=== PATIENT | female | born 1985 | race Caucasian/White ===

== ENCOUNTER 2018-07-21 00:33 | Emergency (ER) | payer OTHER ==
[~2018-07-21] VITALS: Ht 152.4 cm; Wt 102.5 kg
[~2018-07-21 00:33] MED LIST: SULF-168 PO; VICOT PO
[2018-07-21] MEDS ORDERED: AZIT250T9 PO (00:48)
[2018-07-21] MEDS ORDERED: DIPH25 PO (00:48)
[2018-07-21] MEDS ORDERED: DiphenhydrAMINE HCL 50 MG CAPSULE PO ONE (02:15)
[2018-07-21] MEDS ORDERED: FAMOTIDINE 20 MG TABLET PO ONE (02:15)
[2018-07-21] MEDS ORDERED: PredniSONE 20 MG TABLET PO ONE (02:15)
[2018-07-21 02:27] VITALS: BP 132/88
== END 2018-07-21 02:27 | disposition home or self-care (01) ==
LOC: EMS 00:34
DX: T78.40XA Allergy, unspecified, initial encounter (principal); F41.9 Anxiety disorder, unspecified; F32.9 Major depressive disorder, single episode, unspecified; Z88.1 Allergy status to other antibiotic agents; Z79.899 Other long term (current) drug therapy
CPT/HCPCS: 99284; J7512

== ENCOUNTER 2023-10-27 14:53 | Emergency (ER) | payer OTHER ==
[~2023-10-27] VITALS: Ht 154.9 cm; Wt 90.9 kg
[~2023-10-27 14:53] MED LIST changes: -SULF-168 PO; +TRAZ-184 PO; -VICOT PO
[2023-10-27 15:06] LABS: COVID AG,FIA SOURCE NASAL SWAB
[2023-10-27 15:34] LABS: SARS-COV2 (COVID) ANTIGEN,FIA Negative (Negative)
[2023-10-27 15:35] LABS: INFLUENZA TYPE A NEGATIVE FOR TYPE A (NEGATIVE); INFLUENZA TYPE B NEGATIVE FOR TYPE B (NEGATIVE)
[2023-10-27] MEDS ORDERED: ALBUTEROL SULFATE HFA 90 MCG/PUFF 8 GM INHALER IH ONE (17:00)
[2023-10-27 17:03] VITALS: PULSE 86; RESP 16; O2SAT 98
[2023-10-27 17:05] VITALS: PULSE 88; RESP 16; O2SAT 98
[2023-10-27 18:52] VITALS: BP 128/75; PULSE 102; RESP 16; TEMP 98.2
[2023-10-27] MEDS ORDERED: AZIT250T9 PO (18:52)
== END 2023-10-27 22:12 | disposition home or self-care (01) ==
LOC: EMS 14:56
DX: J18.9 Pneumonia, unspecified organism (principal); F41.9 Anxiety disorder, unspecified; F32.A Depression, unspecified; Z88.8 Allergy status to other drugs, medicaments and biological substances; Z20.822 Contact with and (suspected) exposure to COVID-19
CPT/HCPCS: 99284; 71045; 87426; 87804; 94640; J3535

== ENCOUNTER 2024-05-26 15:39 | Emergency (ER) | payer MEDICARE, OTHER ==
[~2024-05-26] VITALS: Ht 149.9 cm; Wt 90.9 kg
[2024-05-26 15:43] VITALS: TEMP 98.2
[2024-05-26 16:17] LABS: BASOPHILS % (AUTO) 0.7 % (0.0-2.0); HEMATOCRIT 41.2 % (36-46); HEMOGLOBIN 13.6 g/dL (12.0-16.0); LYMPHOCYTES # (AUTO) 2.2 K/uL (1.0-4.8); LYMPHOCYTES % (AUTO) 37.2 % (22.0-44.0); MEAN CORPUSCULAR HEMOGLOBIN 29.8 pg (26.0-34.0); MEAN CORPUSCULAR HGB CONC 32.9 G/dL (31.0-37.0); MEAN CORPUSCULAR VOLUME 91 fL (80-100); MONOCYTES # (AUTO) 0.6 K/uL (0.1-1.0); MONOCYTES % (AUTO) 10.6 % (2.0-9.0); NEUTROPHILS # (AUTO) 2.8 K/uL (1.8-7.7); NEUTROPHILS % (AUTO) 47.5 % (40.0-70.0); PLATELET COUNT (AUTO) 206 K/uL (150-450); RED BLOOD CELL COUNT(AUTO) 4.55 MIL/uL (4.00-5.20); RED CELL DISTRIBUTION WIDTH 13.3 % (11.5-14.5); WHITE BLOOD COUNT (AUTO) 5.9 K/uL (4.5-11.0)
[2024-05-26 16:32] LABS: ANION GAP 8 mmol/L (8-16); CALCIUM, TOTAL 8.9 mg/dL (8.8-10.5); CARBON DIOXIDE 28 mmol/L (22-29); CHLORIDE 100 mmol/L (98-107); CREATININE 0.56 mg/dL (0.60-1.30); GLOMERULAR FILTR. RATE CALC > 60 mL/min (>60); GLUCOSE,RANDOM 89 mg/dL (70-110); POTASSIUM 4.2 mmol/L (3.5-5.1); SODIUM SERUM 136 mmol/L (136-145); UREA NITROGEN, BLOOD 11 mg/dL (7-18)
[2024-05-26 16:41] LABS: HCG,QUANTITATIVE 1 mIU/mL (0-6); LIPASE 35 U/L (16-77)
[2024-05-26 17:16] LABS: APPEARANCE,URINE CLEAR (CLEAR); BILIRUBIN,URINE NEGATIVE (NEGATIVE); COLOR,URINE COLORLESS (YELLOW); GLUCOSE, URINE (UA) NEGATIVE (NEGATIVE); KETONES,URINE NEGATIVE (NEGATIVE); LEUKOCYTE ESTERASE ,URINE TRACE (NEGATIVE); NITRATE,URINE NEGATIVE (NEGATIVE); OCCULT BLOOD,URINE NEGATIVE (NEGATIVE); PROTEIN,URINE NEGATIVE (NEGATIVE); SPECIFIC GRAVITIY, URINE 1.006 (1.003-1.030); UROBILINOGEN,URINE <=1.0 mg/dL (<=1.0)
[2024-05-26 17:20] LABS: ALBUMIN 3.6 g/dL (3.4-5.0); BILIRUBIN,DIRECT 0.1 mg/dL (0.00-0.20); BILIRUBIN,TOTAL 0.3 mg/dL (0.1-1.0); TOTAL PROTEIN, SERUM 7.6 g/dL (6.4-8.2)
[2024-05-26] MEDS: FAMOTIDINE 20 MG/2 ML VIAL IVP ONE (17:36)
[2024-05-26] MEDS: SODIUM CHLORIDE 0.9% 1,000 ML IV ONE (17:36)
[2024-05-26] MEDS: MORPHINE SULFATE 2 MG/ML SYRINGE IVP ONE (17:37)
[2024-05-26 17:41] LABS: BACTERIA,URINE None Seen /HPF (None Seen); RBC,URINE None Seen /HPF (0-2); WBC,URINE 0-2 /HPF (0-5)
[2024-05-26 18:02] VITALS: BP 120/66; PULSE 78; RESP 16; O2SAT 97
[2024-05-26] MEDS ORDERED: FAMO20 PO (18:49)
[2024-05-26] MEDS ORDERED: TRAM50TA5 PO (18:50)
== END 2024-05-26 19:18 | disposition home or self-care (01) ==
LOC: EMS 15:39
DX: K80.20 Calculus of gallbladder without cholecystitis without obstruction (principal); F41.9 Anxiety disorder, unspecified; F32.A Depression, unspecified; Z88.8 Allergy status to other drugs, medicaments and biological substances
CPT/HCPCS: 99285; 96374; 76705; 96361; 96375; 80048; 80076; 81001; 83690; 84702; 85025; 36415; J3490; J2270; J7030

== ENCOUNTER 2024-11-12 10:11 | Emergency (ER) | payer MEDICARE, OTHER ==
[~2024-11-12] VITALS: Ht 149.9 cm; Wt 81.8 kg
[~2024-11-12 10:11] MED LIST changes: +FAMO20 PO; +TRAM50TA5 PO; -TRAZ-184 PO
[2024-11-12 10:17] VITALS: BP 115/76; PULSE 68; RESP 18; TEMP 98.5; O2SAT 98
[2024-11-12] MEDS: ACETAMINOPHEN 500 MG TABLET PO ONE (12:25)
[2024-11-12] MEDS: BACITRACIN 0.9 GM PACKET OINTMENT TP ONE (12:25)
[2024-11-12] MEDS ORDERED: IBUP-1554 PO (12:39)
[2024-11-12] MEDS ORDERED: ACET-66 PO (12:39)
[2024-11-12] MEDS ORDERED: DOXY-354 PO (12:39)
== END 2024-11-12 14:46 | disposition home or self-care (01) ==
LOC: EMS 10:14
DX: S62.633A Displaced fracture of distal phalanx of left middle finger, initial encounter for closed fracture (principal); Z88.0 Allergy status to penicillin; Z88.1 Allergy status to other antibiotic agents; W23.0XXA Caught, crushed, jammed, or pinched between moving objects, initial encounter; Y93.89 Activity, other specified; Y92.89 Other specified places as the place of occurrence of the external cause; Y99.8 Other external cause status
CPT/HCPCS: 29280; 99283